=== PATIENT | male | born 1955 | race Two or more races ===

== ENCOUNTER 2020-01-21 17:46 | Emergency (ER) | payer OTHER ==
[~2020-01-21] VITALS: Ht 167.6 cm; Wt 77.1 kg
[2020-01-21] MEDS ORDERED: TDAP [DIPH/PERTUSSIS/TET] 0.5 ML VIAL IM ONE ×2 (18:24→18:30)
[2020-01-21] MEDS ORDERED: HYDROCODONE/APAP 5/325MG TABLET ONE ×2 (18:25→18:26)
[2020-01-21] MEDS ORDERED: LIDOCAINE HCL/MPF 1% 30 ML VIAL IJ ONE (18:29)
[2020-01-21] MEDS ORDERED: HYDROCODONE/APAP 5/325MG TABLET PO ONE (18:30)
[2020-01-21] MEDS ORDERED: CEFAZOLIN 2 GM in IV D5W 100 ML IV ONE (18:30)
[2020-01-21 18:31] LABS: BASOPHILS # (AUTO) 0.1 /CMM (0.0-0.2); BASOPHILS % (AUTO) 1.1 % (0.0-2.0); EOSINOPHILS % (AUTO) 4.1 % (0.0-6.0); HEMATOCRIT 45 % (39-51); HEMOGLOBIN 15.3 g/dL (13.5-17.5); LYMPHOCYTES # (AUTO) 1.4 /CMM (0.8-4.8); LYMPHOCYTES % (AUTO) 21.5 % (20.0-44.0); MEAN CORPUSCULAR HGB CONC 34 g/dl (31.0-36.0); MEAN CORPUSCULAR VOLUME 87 fL (80-96); MONOCYTES % (AUTO) 16.2 % (2.0-12.0); NEUTROPHILS # (AUTO) 3.6 /CMM (1.8-8.9); NEUTROPHILS % (AUTO) 57.1 % (43.0-81.0); PLATELET COUNT (AUTO) 218 /CMM (150-450); RED BLOOD CELL COUNT(AUTO) 5.19 MIL/uL (4.5-6.0); WHITE BLOOD COUNT (AUTO) 6.3 K/uL (4.3-11.0)
[2020-01-21 18:42] LABS: CALCIUM, SERUM 9.2 mg/dL (8.5-10.1); CREATININE 1.1 mg/dL (0.6-1.3); POTASSIUM 3.6 mmol/L (3.5-5.1)
--- NOTE | 2020-01-21 19:15 | NUR ---
REC'D REPORT FROM [facility]ICK[facility] FOR [facility]
--- NOTE | 2020-01-21 19:15 | NUR ---
Await laceration repair by CALLY Sousa. Nurse Philomena Exchange w/RN Ginger
--- NOTE | 2020-01-21 20:34 | NUR ---
Patient discharged to home in stable condition. Written and verbal after care instructions given. Patient verbalizes understanding of instruction.IV removed. Catheter intact and site benign. Pressure and 4x4 applied to site. No bleeding noted.Pt ambulatory with a steady gait
[2020-01-21 20:35] VITALS: BP 146/99
[2020-01-21 20:39] LABS: EOSINOPHILS % (MANUAL) 5 % (0-4); LYMPHOCYTES % (MANUAL) 23 % (16-48); MONOCYTES % (MANUAL) 13 % (0-11.0); NEUTROPHILS % (MANUAL) 59 (42-76)
== END 2020-01-21 20:35 | disposition home or self-care (01) ==
LOC: ER 17:49
DX: S62.511B Displaced fracture of proximal phalanx of right thumb, initial encounter for open fracture (principal); S66.221A Laceration of extensor muscle, fascia and tendon of right thumb at wrist and hand level, initial encounter; I10 Essential (primary) hypertension; W26.8XXA Contact with other sharp object(s), not elsewhere classified, initial encounter; Y93.89 Activity, other specified; Y92.89 Other specified places as the place of occurrence of the external cause; Y99.8 Other external cause status
CPT/HCPCS: 29125; 36415; 73140; 80048; 85025; 90471; 90715; 96365; 96366; 99284; J0690; J3490; J7060

== ENCOUNTER 2021-09-05 20:32 | Emergency (ER) | payer OTHER ==
[~2021-09-05] VITALS: Ht 170.2 cm; Wt 77.1 kg
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
[2021-09-05] MEDS ORDERED: HYDROCODONE/APAP 5/325MG TABLET ONE (21:41)
--- NOTE | 2021-09-05 21:47 | NUR ---
PATIENT AT CT.
[2021-09-05] MEDS ORDERED: HYDROCODONE/APAP 5/325MG TABLET PO ONE (22:00)
[2021-09-05] MEDS ORDERED: CYCL10TA9 PO (23:08)
[2021-09-05] MEDS ORDERED: IBUP-1955 PO (23:08)
[2021-09-05 23:30] VITALS: BP 140/80
--- NOTE | 2021-09-05 23:30 | NUR ---
Patient discharged to home in stable condition. Written and verbal after care instructions given. Patient verbalizes understanding of instruction.
== END 2021-09-05 23:31 | disposition home or self-care (01) ==
LOC: ER 20:44
DX: S16.1XXA Strain of muscle, fascia and tendon at neck level, initial encounter (principal); S39.012A Strain of muscle, fascia and tendon of lower back, initial encounter; M25.512 Pain in left shoulder; M25.562 Pain in left knee; I10 Essential (primary) hypertension; J45.909 Unspecified asthma, uncomplicated; V89.2XXA Person injured in unspecified motor-vehicle accident, traffic, initial encounter; Y93.89 Activity, other specified; Y92.89 Other specified places as the place of occurrence of the external cause; Y99.8 Other external cause status; Z79.899 Other long term (current) drug therapy
CPT/HCPCS: 70450-TC; 72125-TC; 72128-TC; 72131-TC; 73030-TC; 73564-TC

== ENCOUNTER 2022-04-04 20:48 | Emergency (ER) | payer OTHER ==
[~2022-04-04] VITALS: Ht 167.6 cm; Wt 77.1 kg
[~2022-04-04 20:48] MED LIST: CYCL10TA9 PO; IBUP-1955 PO
[2022-04-04 22:18] VITALS: BP 142/92
== END 2022-04-04 22:26 ==
LOC: ER 20:58
DX: I10 Essential (primary) hypertension; J45.909 Unspecified asthma, uncomplicated; Z79.899 Other long term (current) drug therapy
CPT/HCPCS: 82962-TC